=== PATIENT | female | born 1990 | race Caucasian/White ===

== ENCOUNTER 2016-10-30 14:18 | Inpatient (IN) | payer BC, OTHER ==
[~2016-10-30] VITALS: Ht 165.1 cm; Wt 140.2 kg
[2016-10-30 15:24] LABS: ASPARTATE AMINO TRANSFERASE 12 U/L (15-37); BLOOD UREA NITROGEN 14 mg/dL (7-18)
[2016-10-30 15:34] LABS: IS PT STATUS REG ER OR PRE ER? YES
[2016-10-30] MEDS ORDERED: MORPHINE SULFATE 4 MG/ML, 1ML ONE (17:38)
[2016-10-30] MEDS ORDERED: ONDANSETRON 2MG/ML, 2ML ONE (17:38)
[2016-10-30] MEDS ORDERED: ONDANSETRON 2MG/ML, 2ML IVPush ONE (18:00)
[2016-10-30] MEDS ORDERED: MORPHINE SULFATE 4 MG/ML, 1ML IVPush ONE (18:00)
[2016-10-30] MEDS ORDERED: HYDROmorphone 1 MG/ML, 1ML ONE ×2 (18:37→20:28)
[2016-10-30] MEDS ORDERED: HEPARIN 5,000 UNITS/ML, 1ML ONE ×2 (18:37→19:11)
[2016-10-30] MEDS ORDERED: HEPARIN 25,000 UNITS/500ML PMX 500 ML ONE (18:37)
[2016-10-30] MEDS: HYDROmorphone 2 MG/ML, 1ML IVPush PRN ×3 (18:54→22:02)
[2016-10-30] MEDS ORDERED: PREN1TAB28 PO (19:00)
[2016-10-30] MEDS ORDERED: CHOL20002 PO (19:00)
[2016-10-30] MEDS ORDERED: POTA10TA31 PO (19:00)
[2016-10-30] MEDS ORDERED: HEPARIN 25,000 UNITS/500ML PMX 500 ML IV PRN (19:00)
[2016-10-30] MEDS ORDERED: HEPARIN 5,000 UNITS/ML, 1ML IV ONE (19:00)
[2016-10-30 21:05] VITALS: BP 114/76
[2016-10-30] MEDS: HYDROcodone/APAP 5/325 TABLET PO PRN (21:43)
[2016-10-30 22:04] VITALS: BP 97/66
[2016-10-31 02:30] VITALS: BP 93/67
[2016-10-31] MEDS: HEPARIN 5,000 UNITS/ML, 1ML IV PRN ×2 (02:38→09:58)
[2016-10-31] MEDS: HYDROcodone/APAP 5/325 TABLET PO PRN ×3 (02:38→18:27)
[2016-10-31] MEDS: HYDROmorphone 2 MG/ML, 1ML IVPush PRN ×3 (04:09→09:55)
[2016-10-31 04:11] VITALS: BP 100/67
[2016-10-31 06:06] VITALS: BP 98/67
[2016-10-31 07:51] VITALS: BP 96/60
[2016-10-31] MEDS ORDERED: HEPARIN 25,000 UNITS/500ML PMX 500 ML IV PRN (13:30)
[2016-10-31] MEDS ORDERED: ENOXAPARIN 150 MG/ML SQ SCH (13:30)
[2016-10-31] MEDS: ENOXAPARIN 150 MG/ML SQ SCH (13:57)
[2016-10-31 14:00] VITALS: BP 104/72
[2016-10-31 18:33] VITALS: BP 111/73
[2016-11-01] MEDS: ENOXAPARIN 150 MG/ML SQ SCH ×2 (02:13→16:34)
[2016-11-01] MEDS: HYDROcodone/APAP 5/325 TABLET PO PRN ×3 (02:14→18:24)
[2016-11-01 02:22] VITALS: BP 99/68
[2016-11-01 05:20] LABS: BLOOD UREA NITROGEN 9 mg/dL (7-18)
[2016-11-01 07:44] VITALS: BP 107/72
[2016-11-01] MEDS: SODIUM CHLORIDE 0.9% 1,000 ML IV SCH ×2 (08:07→20:39)
[2016-11-01 13:12] VITALS: BP 118/88
[2016-11-01 20:35] VITALS: BP 110/74
[2016-11-02 02:00] VITALS: BP 100/69
[2016-11-02] MEDS: HYDROcodone/APAP 5/325 TABLET PO PRN ×3 (03:35→22:41)
[2016-11-02] MEDS: ENOXAPARIN 150 MG/ML SQ SCH ×2 (05:20→17:25)
[2016-11-02 07:17] VITALS: BP 93/61
[2016-11-02] MEDS: SODIUM CHLORIDE 0.9% 1,000 ML IV SCH (09:15)
[2016-11-02 14:03] VITALS: BP 117/75
[2016-11-02] MEDS ORDERED: SODIUM CHLORIDE NASAL SPRAY 45ML BOTTLE NAS PRN (18:30)
[2016-11-02 20:41] VITALS: BP 102/62
[2016-11-03 04:55] LABS: BLOOD UREA NITROGEN 13 mg/dL (7-18)
[2016-11-03] MEDS: ENOXAPARIN 150 MG/ML SQ SCH (06:20)
[2016-11-03 06:41] VITALS: BP 100/68
[2016-11-03] MEDS: HYDROcodone/APAP 5/325 TABLET PO PRN (10:00)
[2016-11-03] MEDS ORDERED: ENOX100S5 SQ (12:39)
[2016-11-03 14:13] VITALS: BP 100/69
[2016-11-03] MEDS ORDERED: ENOXAPARIN 100 MG/ML SQ SCH (18:00)
== END 2016-11-03 15:10 | disposition home or self-care (01) | DRG 781 ==
LOC: ED 18:42 → 5SO 20:12
PROVIDERS: ADMIT Internal Medicine; ATTEND Internal Medicine
DX: O88.211 Thromboembolism in pregnancy, first trimester (principal); O99.011 Anemia complicating pregnancy, first trimester; J96.01 Acute respiratory failure with hypoxia; E43 Unspecified severe protein-calorie malnutrition; O99.111 Other diseases of the blood and blood-forming organs and certain disorders involving the immune mechanism complicating pregnancy, first trimester; E66.01 Morbid (severe) obesity due to excess calories; O99.211 Obesity complicating pregnancy, first trimester; D64.9 Anemia, unspecified; O25.11 Malnutrition in pregnancy, first trimester; D72.829 Elevated white blood cell count, unspecified; O99.511 Diseases of the respiratory system complicating pregnancy, first trimester; O9A.211 Injury, poisoning and certain other consequences of external causes complicating pregnancy, first trimester; X58.XXXS Exposure to other specified factors, sequela; S82.402S Unspecified fracture of shaft of left fibula, sequela; Z3A.11 11 weeks gestation of pregnancy; Z87.891 Personal history of nicotine dependence; Z80.0 Family history of malignant neoplasm of digestive organs; Z81.3 Family history of other psychoactive substance abuse and dependence; Z82.49 Family history of ischemic heart disease and other diseases of the circulatory system
CPT/HCPCS: 36415; 71020; 71275; 80048; 80053; 82040; 83880; 84484; 84702; 85025; 85379; 85520; 93005; 93970; 96365; 96375; 96376; J1170; J1644; J1650; J2405; J7030

== ENCOUNTER → 2016-11-07 | Outpatient (CLI) | payer BC ==
[~2016-11-07] MED LIST: CHOL20002 PO; ENOX100S5 SQ; POTA10TA31 PO; PREN1TAB28 PO
== END | disposition home or self-care (01) ==
LOC: RAD 13:39
PROVIDERS: ATTEND Obstetrics & Gynecology
DX: O88.211 Thromboembolism in pregnancy, first trimester (principal); I26.99 Other pulmonary embolism without acute cor pulmonale; R51 Headache
CPT/HCPCS: 70450

== ENCOUNTER 2016-12-02 13:06 | Emergency (ER) | payer BC ==
[~2016-12-02] VITALS: Ht 167.6 cm; Wt 140.6 kg
[2016-12-02 13:08] VITALS: BP 140/83
== END 2016-12-02 13:51 | disposition home or self-care (01) ==
LOC: ED 13:30
DX: O26.891 Other specified pregnancy related conditions, first trimester (principal); Z76.0 Encounter for issue of repeat prescription; I26.99 Other pulmonary embolism without acute cor pulmonale
CPT/HCPCS: 99283

== ENCOUNTER 2017-02-27 16:47 | Emergency (ER) | payer BC ==
[~2017-02-27] VITALS: Ht 165.1 cm; Wt 145.4 kg
[2017-02-27 16:52] VITALS: BP 127/87
== END 2017-02-27 18:35 | disposition home or self-care (01) ==
LOC: ED 18:15
DX: S90.01XA Contusion of right ankle, initial encounter (principal); S80.11XA Contusion of right lower leg, initial encounter; W07.XXXA Fall from chair, initial encounter; Y93.89 Activity, other specified; Y99.8 Other external cause status; Y92.59 Other trade areas as the place of occurrence of the external cause
CPT/HCPCS: 99284

== ENCOUNTER 2017-04-24 10:24 | Outpatient (CLI) | payer BC ==
[~2017-04-24] VITALS: Ht 165.1 cm; Wt 153.6 kg
[2017-04-24 11:04] VITALS: BP 157/71
[2017-04-24 11:30] LABS: HEMATOCRIT 36.6 % (34.6-47.8); HEMOGLOBIN 12.5 g/dL (11.7-16.4); WHITE BLOOD COUNT 12.7 x10^3/uL (3.4-10)
[2017-04-24 11:43] LABS: ASPARTATE AMINO TRANSFERASE 8 U/L (15-37); BLOOD UREA NITROGEN 9 mg/dL (7-18)
== END 2017-04-24 12:15 | disposition home or self-care (01) ==
LOC: LDOP 10:24
PROVIDERS: ATTEND Obstetrics & Gynecology
DX: O13.3 Gestational [pregnancy-induced] hypertension without significant proteinuria, third trimester (principal); Z3A.35 35 weeks gestation of pregnancy
CPT/HCPCS: 36415; 59025; 80053; 81003; 82248; 82570; 84156; 84550; 85025; 99211; G0463

== ENCOUNTER 2017-05-15 09:34 | Inpatient (IN) | payer BC ==
[~2017-05-15] VITALS: Ht 165.1 cm; Wt 152.2 kg
[2017-05-15] MEDS ORDERED: LACTATED RINGERS 1,000 ML IV SCH (09:59)
[2017-05-15] MEDS ORDERED: OXYTOCIN 30U/ 0.9% NaCL 500ML 500 ML IV SCH (09:59)
[2017-05-15] MEDS ORDERED: LACTATED RINGERS 1,000 ML IVBOLUS ONE (10:00)
[2017-05-15 10:08] VITALS: BP 132/84
[2017-05-15] MEDS ORDERED: SODIUM CITRATE/CITRIC ACID 30 ML UDC ONE ×2 (10:18→11:06)
[2017-05-15] MEDS ORDERED: NEWBORN KIT ONE (10:18)
[2017-05-15] MEDS ORDERED: OXYTOCIN 30U/ 0.9% NaCL 500ML 500 ML ONE (10:18)
[2017-05-15] MEDS ORDERED: METOCLOPRAMIDE 5 MG/ML, 2ML ONE (10:18)
[2017-05-15] MEDS ORDERED: METOCLOPRAMIDE 5 MG/ML, 2ML IVPush ONE (10:30)
[2017-05-15] MEDS ORDERED: SODIUM CITRATE/CITRIC ACID 30 ML UDC PO ONE (10:30)
[2017-05-15 10:59] LABS: HEMATOCRIT 36.6 % (34.6-47.8); HEMOGLOBIN 12.6 g/dL (11.7-16.4); WHITE BLOOD COUNT 12.4 x10^3/uL (3.4-10)
[2017-05-15] MEDS ORDERED: KETOROLAC 30 MG/1 ML ONE (11:06)
[2017-05-15] MEDS ORDERED: CEFAZOLIN 1,000 MG ONE (11:06)
[2017-05-15] MEDS: LACTATED RINGERS 1,000 ML IV SCH ×4 (12:00→22:00)
[2017-05-15] MEDS ORDERED: morphine SULFATE 10 MG/ML, 1ML IVPush PRN ×2 (12:00)
[2017-05-15] MEDS ORDERED: MISOPROSTOL 200 MCG TABLET PR PRN (12:00)
[2017-05-15] MEDS ORDERED: ONDANSETRON 2MG/ML, 2ML IV PRN (12:00)
[2017-05-15] MEDS ORDERED: ACETAMINOPHEN 325 MG TABLET PO PRN (12:00)
[2017-05-15] MEDS ORDERED: IBUPROFEN 600 MG TABLET PO PRN (12:00)
[2017-05-15] MEDS ORDERED: OXYcodone 5 MG/5 ML ORAL.SOL UDC ONE (13:03)
[2017-05-15] MEDS ORDERED: morphine SULFATE 10 MG/ML, 1ML ONE ×2 (13:03→14:09)
[2017-05-15] MEDS: morphine SULFATE 10 MG/ML, 1ML IV PRN ×2 (13:10→14:12)
[2017-05-15] MEDS: OXYTOCIN 30U/ 0.9% NaCL 500ML 500 ML IV SCH ×2 (13:25→22:00)
[2017-05-15] MEDS ORDERED: ONDANSETRON 2MG/ML, 2ML IVPush PRN (14:00)
[2017-05-15] MEDS ORDERED: PROMETHAZINE 25 MG/ML, 1ML IV PRN (14:00)
[2017-05-15] MEDS ORDERED: FENTANYL PF 100 MCG/2ML IV PRN (14:00)
[2017-05-15] MEDS ORDERED: OXYcodone 5 MG/5 ML ORAL.SOL UDC PO PRN (14:00)
[2017-05-15 14:30] VITALS: BP 116/76
[2017-05-15] MEDS: KETOROLAC 30 MG/1 ML IV SCH ×2 (17:10→23:13)
[2017-05-15] MEDS: OXYcodone IR 5MG TABLET PO PRN ×2 (17:10→22:12)
[2017-05-15 17:22] VITALS: BP 128/77
[2017-05-15 20:00] VITALS: BP 123/76
[2017-05-15 21:15] LABS: HEMATOCRIT 31.2 % (34.6-47.8); HEMOGLOBIN 10.5 g/dL (11.7-16.4); WHITE BLOOD COUNT 13.4 x10^3/uL (3.4-10)
[2017-05-15] MEDS: DOCUSATE 100 MG CAPSULE PO PRN (22:12)
[2017-05-16 01:15] VITALS: BP 127/76
[2017-05-16] MEDS: OXYcodone IR 5MG TABLET PO PRN ×6 (02:23→23:51)
[2017-05-16] MEDS: LACTATED RINGERS 1,000 ML IV SCH ×5 (04:00→20:00)
[2017-05-16 05:00] VITALS: BP 124/72
[2017-05-16] MEDS: KETOROLAC 30 MG/1 ML IV SCH ×4 (05:07→23:30)
[2017-05-16 08:00] VITALS: BP 136/83
[2017-05-16] MEDS: OXYTOCIN 30U/ 0.9% NaCL 500ML 500 ML IV SCH ×2 (08:00→18:00)
[2017-05-16] MEDS: PRENATAL VIT/IRON/FA 1 EACH TABLET PO SCH (09:00)
[2017-05-16] MEDS: ENOXAPARIN 100 MG/ML SQ SCH ×2 (09:17→20:37)
[2017-05-16] MEDS: IBUPROFEN 600 MG TABLET PO PRN (17:08)
[2017-05-16] MEDS ORDERED: MEASLES,MUMPS&RUBELLA VACC/PF 0.5 ML SQ-VACC ONE (17:30)
[2017-05-16] MEDS ORDERED: FLU VACC QS2017-18 (36MOS+) UP/PF 0.5 ML IM-VACC ONE (17:30)
[2017-05-16 19:35] VITALS: BP 126/76
[2017-05-16] MEDS: DOCUSATE 100 MG CAPSULE PO PRN (19:40)
[2017-05-17 00:18] VITALS: BP 132/70
[2017-05-17] MEDS: IBUPROFEN 600 MG TABLET PO PRN ×4 (00:31→22:32)
[2017-05-17] MEDS: OXYcodone IR 5MG TABLET PO PRN ×2 (03:45→08:50)
[2017-05-17] MEDS: OXYTOCIN 30U/ 0.9% NaCL 500ML 500 ML IV SCH (04:00)
[2017-05-17] MEDS: LACTATED RINGERS 1,000 ML IV SCH ×3 (04:00→10:21)
[2017-05-17] MEDS ORDERED: OXYcodone IR 5MG TABLET PO ONE (05:00)
[2017-05-17] MEDS: KETOROLAC 30 MG/1 ML IV SCH ×2 (05:30→10:21)
[2017-05-17 08:05] VITALS: BP 108/75
[2017-05-17] MEDS: DOCUSATE 100 MG CAPSULE PO PRN ×2 (08:47→22:31)
[2017-05-17] MEDS: PRENATAL VIT/IRON/FA 1 EACH TABLET PO SCH (08:47)
[2017-05-17] MEDS: ENOXAPARIN 100 MG/ML SQ SCH ×2 (08:58→22:34)
[2017-05-17 12:30] VITALS: BP 114/73
[2017-05-17] MEDS: OXYcodone/APAP 5/325MG TABLET PO PRN ×3 (12:59→18:27)
[2017-05-17 19:45] VITALS: BP 134/86
[2017-05-17] MEDS: OXYcodone/APAP 10/325MG TABLET PO PRN (22:31)
[2017-05-18] MEDS: OXYcodone/APAP 10/325MG TABLET PO PRN ×4 (03:11→16:14)
[2017-05-18] MEDS: IBUPROFEN 600 MG TABLET PO PRN ×2 (05:20→11:20)
[2017-05-18 07:30] VITALS: BP 120/79
[2017-05-18] MEDS: DOCUSATE 100 MG CAPSULE PO PRN (08:39)
[2017-05-18] MEDS: PRENATAL VIT/IRON/FA 1 EACH TABLET PO SCH (08:39)
[2017-05-18] MEDS ORDERED: IBUPROFEN 600 MG TABLET PO PRN (09:00)
[2017-05-18] MEDS: ENOXAPARIN 100 MG/ML SQ SCH (09:07)
[2017-05-18 12:00] VITALS: BP 168/111
[2017-05-18 16:00] VITALS: BP 138/91
== END 2017-05-18 18:40 | disposition home or self-care (01) | DRG 765 ==
LOC: LDOP 09:34 → LDIP 09:54 → 2NW 14:18
PROVIDERS: ADMIT Obstetrics & Gynecology; ATTEND Obstetrics & Gynecology
PROC: 10D00Z1 Extraction of Products of Conception, Low, Open Approach (ICD-10-PCS; principal; 2017-05-15)
DX: O34.211 Maternal care for low transverse scar from previous cesarean delivery (principal); O99.354 Diseases of the nervous system complicating childbirth; G44.209 Tension-type headache, unspecified, not intractable; Z79.01 Long term (current) use of anticoagulants; Z37.0 Single live birth; Z86.718 Personal history of other venous thrombosis and embolism; Z3A.38 38 weeks gestation of pregnancy; Z86.711 Personal history of pulmonary embolism
CPT/HCPCS: 36415; 85025; 86850; 86900; 90686; J0690; J1650; J1885; J2270; J2590; J2765; J7120

== ENCOUNTER 2019-06-17 09:56 | Emergency (ER) | payer BC ==
[~2019-06-17] VITALS: Ht 167.6 cm; Wt 91.1 kg
[~2019-06-17 09:56] MED LIST changes: -CHOL20002 PO; +CHOL200052 PO
--- NOTE | 2019-06-17 10:11 | NUR ---
Deisi De Leon&Narciso RN spoken with. Updated on gestation/complaint & pt location. Will come to ED for FHT.
[2019-06-17] MEDS ORDERED: ENOX40SY4 SQ (10:25)
--- NOTE | 2019-06-17 10:25 | NUR ---
PT CAME IN CO OF SOB AND CHEST PAIN SINCE YESTERDAY. PT IS 15 WEEKS . L&D NOTIFIED. PT IS HOOKED UP TO [employer] AND IS 100% ON ROOM AIR. HX OF DVTS DURING PREVIOUS . IS TAKING 40MG LOVENOX DAILY. ACCOMPANIED BY .
[2019-06-17 10:55] LABS: BASOPHILS # (AUTO) 0.02 x10^3/uL (0-0.1); BASOPHILS % (AUTO) 0 % (0-1); EOSINOPHILS # (AUTO) 0.01 x10^3/uL (0-0.4); EOSINOPHILS % (AUTO) 0 % (1-7); LYMPHOCYTES # (AUTO) 1.13 x10^3/uL (1-3.4); LYMPHOCYTES % (AUTO) 19 % (22-44); MD NO; MEAN CORPUSCULAR HEMOGLOBIN 32.7 pg (27.0-34.8); MEAN CORPUSCULAR HGB CONC 33.9 g/dL (32.4-35.8); MEAN CORPUSCULAR VOLUME 96.5 fL (80-100); MONOCYTES # (AUTO) 0.62 x10^3/uL (0.2-0.8); MONOCYTES % (AUTO) 10 % (2-9); NEUTROPHILS # (AUTO) 4.28 x10^3/uL (1.8-6.8); NEUTROPHILS % (AUTO) 71 % (42-75); PLATELET COUNT 190 x10^3/uL (130-400); RED BLOOD COUNT 3.99 x10^6/uL (3.82-5.3); RED CELL DISTRIBUTION WIDTH 12.7 % (9.6-15.2)
[2019-06-17] MEDS ORDERED: SODIUM CHLORIDE FLUSH 10ML SYR IVF ONE (11:00)
[2019-06-17 11:05] LABS: ALANINE AMINOTRANSFERASE 33 U/L (12-78); ANION GAP 6 mmol/L (5-15); CALCIUM 8.2 mg/dL (8.5-10.1); CHLORIDE 111 mmol/L (98-107); CREATININE 0.56 mg/dL (0.55-1.02)
[2019-06-17 11:09] LABS: ALKALINE PHOSPHATASE 39 U/L (45-117); BILIRUBIN,TOTAL 0.2 mg/dL (0.2-1.0); TOTAL PROTEIN 6.6 g/dL (6.4-8.2); TROPONIN I < 0.015 ng/mL (0.000-0.045)
[2019-06-17] MEDS ORDERED: OMNIPAQUE 350 MG/ML, 100ML BOTTLE ONE (11:44)
--- NOTE | 2019-06-17 11:51 | NUR ---
PT RESTING IN HOSPITAL BED. WATER PROVIDED. NO OTHER NEEDS AT THIS TIME
[2019-06-17 12:24] VITALS: BP 130/86
== END 2019-06-17 12:26 | disposition home or self-care (01) ==
LOC: ED 10:18
DX: O99.612 Diseases of the digestive system complicating pregnancy, second trimester (principal); Z3A.17 17 weeks gestation of pregnancy
CPT/HCPCS: 36415; 71275; 80053; 83880; 84484; 85025; 93005; 99284; Q9967

== ENCOUNTER 2019-07-28 10:58 | Outpatient (CLI) | payer BC ==
[~2019-07-28] VITALS: Ht 167.6 cm; Wt 96.4 kg
[2019-07-28 10:50] VITALS: BP 119/65
[~2019-07-28 10:58] MED LIST changes: +ENOX40SY4 SQ
== END 2019-07-28 11:22 | disposition home or self-care (01) ==
LOC: LDOP 10:58
PROVIDERS: ATTEND Obstetrics & Gynecology
DX: O26.892 Other specified pregnancy related conditions, second trimester (principal); R10.9 Unspecified abdominal pain; Z3A.22 22 weeks gestation of pregnancy
CPT/HCPCS: 99211; G0463

== ENCOUNTER 2019-07-28 11:23 | Emergency (ER) | payer BC ==
[~2019-07-28] VITALS: Ht 167.6 cm; Wt 99.6 kg
--- NOTE | 2019-07-28 11:45 | NUR ---
C-COLLAR PLACED IN TRIAGE AND PT TO RME VIA WHEELCHAIR
--- NOTE | 2019-07-28 12:07 | NUR ---
PT WITH [facility] APPROXIMATELY 0930 THIS AM, PT STATES SHE HIT THE BACK OF HER HEAD, C/O BACK OF NECK PAIN AND LOWER BACK PAIN/AL, DESCRIBES NECK PAIN STIFFNESS. PT TAKING LOVENOX FOR HX OF BLOOD CLOTS WITH PREVIOUS . PT 20 WEEKS . Addendum: 07/28/19 at 1209 by [email or web address] PT CHECKED IN WITH L%D PRIOR TO COMING TO ER, PT CLEARED BY L%D.
[2019-07-28 12:09] VITALS: BP 100/62
--- NOTE | 2019-07-28 13:10 | NUR ---
REPORT RECEIVED FROM RONY RAMESH.
--- NOTE | 2019-07-28 13:20 | NUR ---
PT AWARE OF DC PLAN. DRESSED.
== END 2019-07-28 13:36 | disposition home or self-care (01) ==
LOC: ED 13:04
DX: O9A.212 Injury, poisoning and certain other consequences of external causes complicating pregnancy, second trimester (principal); S16.1XXA Strain of muscle, fascia and tendon at neck level, initial encounter; S00.93XA Contusion of unspecified part of head, initial encounter; Z3A.22 22 weeks gestation of pregnancy; V49.49XA Driver injured in collision with other motor vehicles in traffic accident, initial encounter; Y93.89 Activity, other specified; Y92.410 Unspecified street and highway as the place of occurrence of the external cause; Y99.8 Other external cause status
CPT/HCPCS: 70450; 72125; 99285

== ENCOUNTER 2019-11-21 03:52 | Inpatient (IN) | payer BC ==
[~2019-11-21] VITALS: Ht 167.6 cm; Wt 118.1 kg
[2019-11-21] MEDS ORDERED: METOCLOPRAMIDE 5 MG/ML, 2ML ONE (10:09)
[2019-11-21] MEDS ORDERED: OXYTOCIN 30U/ 0.9% NaCL 500ML 500 ML ONE (10:09)
[2019-11-21] MEDS ORDERED: SODIUM CITRATE/CITRIC ACID 30 ML UDC ONE (10:09)
[2019-11-21] MEDS ORDERED: LACTATED RINGERS 1,000 ML IV SCH ×2 (10:09→13:11)
[2019-11-21] MEDS ORDERED: NEWBORN KIT ONE (10:09)
[2019-11-21] MEDS ORDERED: LACTATED RINGERS 1,000 ML IVBOLUS ONE (10:30)
[2019-11-21] MEDS ORDERED: SODIUM CITRATE/CITRIC ACID 30 ML UDC PO ONE (10:30)
[2019-11-21] MEDS ORDERED: METOCLOPRAMIDE 5 MG/ML, 2ML IV ONE (10:30)
[2019-11-21 10:32] LABS: BASOPHILS # (AUTO) 0.03 x10^3/uL (0-0.1); BASOPHILS % (AUTO) 0 % (0-1); EOSINOPHILS # (AUTO) 0.07 x10^3/uL (0-0.4); EOSINOPHILS % (AUTO) 1 % (1-7); LYMPHOCYTES # (AUTO) 1.47 x10^3/uL (1-3.4); LYMPHOCYTES % (AUTO) 18 % (22-44); MD NO; MEAN CORPUSCULAR HEMOGLOBIN 32.2 pg (27.0-34.8); MEAN CORPUSCULAR HGB CONC 33.6 g/dL (32.4-35.8); MEAN CORPUSCULAR VOLUME 95.7 fL (80-100); MEAN PLATELET VOLUME 9.4 fL (7.4-10.4); MONOCYTES # (AUTO) 0.48 x10^3/uL (0.2-0.8); MONOCYTES % (AUTO) 6 % (2-9); NEUTROPHILS % (AUTO) 75 % (42-75); PLATELET COUNT 231 x10^3/uL (130-400); RED BLOOD COUNT 4.04 x10^6/uL (3.82-5.3); RED CELL DISTRIBUTION WIDTH 13.4 % (9.6-15.2)
[2019-11-21] MEDS ORDERED: CEFAZOLIN 1,000 MG ONE (11:30)
[2019-11-21] MEDS ORDERED: FENTANYL PF 100 MCG/2ML ONE (11:30)
[2019-11-21] MEDS ORDERED: ONDANSETRON 2MG/ML, 2ML ONE (11:30)
[2019-11-21] MEDS ORDERED: OXYTOCIN 10 UNITS/ML, 1ML ONE (11:30)
[2019-11-21] MEDS ORDERED: HYDROmorphone 2 MG/ML, 1ML ONE (11:31)
[2019-11-21] MEDS ORDERED: SODIUM CHLORIDE 0.9% PF 10ML ONE ×2 (11:32)
[2019-11-21] MEDS ORDERED: KETOROLAC 30 MG/1 ML ONE (12:57)
[2019-11-21] MEDS: OXYTOCIN 30U/ 0.9% NaCL 500ML 500 ML IV SCH ×2 (13:15→23:11)
[2019-11-21] MEDS ORDERED: ONDANSETRON 2MG/ML, 2ML IV PRN (13:30)
[2019-11-21] MEDS ORDERED: OXYcodone/APAP 5/325MG TABLET PO PRN (13:30)
[2019-11-21] MEDS: LACTATED RINGERS 1,000 ML IV SCH ×2 (13:30→23:11)
[2019-11-21] MEDS ORDERED: MISOPROSTOL 200 MCG TABLET PR PRN (13:30)
[2019-11-21] MEDS ORDERED: MORPHINE SULFATE 4 MG/ML, 1ML IVPush PRN (13:30)
[2019-11-21] MEDS ORDERED: OXYcodone 5 MG/5 ML ORAL.SOL UDC ONE (14:38)
[2019-11-21] MEDS ORDERED: OXYcodone 5 MG/5 ML ORAL.SOL UDC PO PRN (15:00)
[2019-11-21 15:12] VITALS: BP 108/73
[2019-11-21] MEDS: OXYcodone IR 5MG TABLET PO PRN ×2 (17:36→21:36)
[2019-11-21] MEDS: KETOROLAC 30 MG/1 ML IV SCH (18:30)
[2019-11-21 20:20] VITALS: BP 103/71
[2019-11-21 20:32] LABS: BASOPHILS # (AUTO) 0.07 x10^3/uL (0-0.1); BASOPHILS % (AUTO) 1 % (0-1); EOSINOPHILS # (AUTO) 0.05 x10^3/uL (0-0.4); EOSINOPHILS % (AUTO) 0 % (1-7); LYMPHOCYTES # (AUTO) 1.58 x10^3/uL (1-3.4); LYMPHOCYTES % (AUTO) 14 % (22-44); MD NO; MEAN CORPUSCULAR HEMOGLOBIN 33.1 pg (27.0-34.8); MEAN CORPUSCULAR HGB CONC 34.4 g/dL (32.4-35.8); MEAN CORPUSCULAR VOLUME 96.1 fL (80-100); MEAN PLATELET VOLUME 9.1 fL (7.4-10.4); MONOCYTES # (AUTO) 0.74 x10^3/uL (0.2-0.8); MONOCYTES % (AUTO) 7 % (2-9); NEUTROPHILS # (AUTO) 8.76 x10^3/uL (1.8-6.8); NEUTROPHILS % (AUTO) 78 % (42-75); PLATELET COUNT 166 x10^3/uL (130-400); RED BLOOD COUNT 3.23 x10^6/uL (3.82-5.3); RED CELL DISTRIBUTION WIDTH 13.3 % (9.6-15.2)
[2019-11-21 21:00] VITALS: BP 101/69
[2019-11-21] MEDS: DOCUSATE 100 MG CAPSULE PO PRN (21:37)
[2019-11-22] MEDS: KETOROLAC 30 MG/1 ML IV SCH ×2 (01:14→07:29)
[2019-11-22] MEDS: OXYcodone IR 5MG TABLET PO PRN ×5 (01:26→20:32)
[2019-11-22 06:05] VITALS: BP 101/68
[2019-11-22] MEDS: DOCUSATE 100 MG CAPSULE PO PRN ×2 (07:29→19:21)
[2019-11-22] MEDS: ACETAMINOPHEN 325 MG TABLET PO PRN ×2 (07:29→20:32)
[2019-11-22] MEDS ORDERED: IBUPROFEN 600 MG TABLET ONE (07:32)
[2019-11-22] MEDS: PRENATAL VIT/IRON/FA 1 EACH TABLET PO SCH (07:44)
[2019-11-22] MEDS: IBUPROFEN 600 MG TABLET PO PRN ×3 (07:45→19:21)
[2019-11-22 08:00] VITALS: BP 117/79
[2019-11-22] MEDS: LACTATED RINGERS 1,000 ML IV SCH ×2 (09:11→19:11)
[2019-11-22] MEDS: OXYTOCIN 30U/ 0.9% NaCL 500ML 500 ML IV SCH ×2 (09:11→19:11)
[2019-11-22] MEDS: ENOXAPARIN 40 MG/0.4 ML SQ SCH (13:16)
[2019-11-22] MEDS: SIMETHICONE 80 MG CHEW TAB PO PRN (19:22)
[2019-11-22 20:15] VITALS: BP 103/71
[2019-11-23] MEDS: OXYcodone IR 5MG TABLET PO PRN ×5 (00:30→21:52)
[2019-11-23] MEDS: IBUPROFEN 600 MG TABLET PO PRN ×4 (02:18→21:00)
[2019-11-23] MEDS: ACETAMINOPHEN 325 MG TABLET PO PRN ×2 (04:41→16:54)
[2019-11-23] MEDS: SIMETHICONE 80 MG CHEW TAB PO PRN ×3 (04:42→20:59)
[2019-11-23] MEDS: OXYTOCIN 30U/ 0.9% NaCL 500ML 500 ML IV SCH ×2 (05:11→15:11)
[2019-11-23] MEDS: LACTATED RINGERS 1,000 ML IV SCH ×2 (05:11→15:11)
[2019-11-23 07:45] VITALS: BP 128/85
[2019-11-23] MEDS: DOCUSATE 100 MG CAPSULE PO PRN (08:42)
[2019-11-23] MEDS: PRENATAL VIT/IRON/FA 1 EACH TABLET PO SCH (08:43)
[2019-11-23] MEDS: ENOXAPARIN 40 MG/0.4 ML SQ SCH (13:03)
[2019-11-23] MEDS ORDERED: IBUPROFEN 600 MG TABLET PO PRN (13:30)
[2019-11-23 20:00] VITALS: BP 107/76
[2019-11-24] MEDS: LACTATED RINGERS 1,000 ML IV SCH (01:11)
[2019-11-24] MEDS: OXYTOCIN 30U/ 0.9% NaCL 500ML 500 ML IV SCH (01:11)
[2019-11-24] MEDS: OXYcodone IR 5MG TABLET PO PRN ×2 (02:21→09:21)
[2019-11-24] MEDS: IBUPROFEN 600 MG TABLET PO PRN ×2 (05:24→10:57)
[2019-11-24 06:17] LABS: CREATININE 0.58 mg/dL (0.55-1.02)
[2019-11-24 08:20] VITALS: BP 99/66
[2019-11-24] MEDS: DOCUSATE 100 MG CAPSULE PO PRN (09:20)
[2019-11-24] MEDS: PRENATAL VIT/IRON/FA 1 EACH TABLET PO SCH (09:20)
[2019-11-24] MEDS ORDERED: IBUP-1222 PO (10:03)
[2019-11-24] MEDS ORDERED: OXYC-302 PO (10:03)
== END 2019-11-24 11:30 | disposition home or self-care (01) | DRG 788 ==
LOC: LDIP 10:07 → 2NW 14:52
PROVIDERS: ADMIT Obstetrics & Gynecology; ATTEND Obstetrics & Gynecology
PROC: 10D00Z1 Extraction of Products of Conception, Low, Open Approach (ICD-10-PCS; principal; 2019-11-21)
DX: O34.211 Maternal care for low transverse scar from previous cesarean delivery (principal); Z3A.39 39 weeks gestation of pregnancy; Z37.0 Single live birth; Z86.711 Personal history of pulmonary embolism; Z01.84 Encounter for antibody response examination
CPT/HCPCS: 36415; 82565; 85025; 86592; 86850; 86900; G0378; J0690; J1170; J1650; J1885; J2405; J3010; J2590; J2765; J7120; U0001-CS